=== PATIENT | male | born 1990 | race Caucasian/White ===

== ENCOUNTER 2016-06-02 11:42 | Emergency (ER) | payer OTHER ==
[~2016-06-02] VITALS: Ht 162.6 cm; Wt 78.0 kg
[~2016-06-02 11:42] MED LIST: CEPH250 PO; METHI10 PO; MULT-65 PO; PERC5TAB12 PO
[2016-06-02 11:51] VITALS: BP 131/88; PULSE 63; RESP 16; TEMP 97.6; O2SAT 100
[2016-06-02] MEDS ORDERED: THYROID MED (12:01)
[2016-06-02] MEDS ORDERED: BACT800T5 PO (12:09)
--- NOTE | 2016-06-02 12:14 | PD ---
HPI Chief Complaint: Skin Problem Time Seen by Provider: 12:09 Travel History International Travel<30 days: No Contact w/Intl Traveler<30days: No Traveled to known affect area: No History of Present Illness HPI Patient is a 25-year-old male presenting with skin lesion on the left lower extremity. Present for 2 days. Mother states it started off as a small blister and was pruritic. It is gotten larger over the last day. It is mildly painful. They've applied ice which has helped. No other attempts at palliation. No history of MRSA. No known trauma to the area however they recently unpacked boxes after moving [place] [facility] and he thinks he may have been an insect in the boxes and bit him. Last tetanus vaccine greater than 5 years. Denies fever, chills, nausea, vomiting or lymphadenopathy. He denies hives and difficulty breathing. 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) Implanted Vascular Access Dvce: No Kidney Stones: Yes (LITHOTRIPSY) Medical other: Yes (LOW MUSCLE TONE) Musculoskeletal: Yes (LOW MUSCLE TONE) Neurologic: No Psychiatric: No Reproductive: No Respiratory: No Immunizations Current: Yes Migraines: No Renal Failure: No Seizures: No Thyroid Disease: Yes (HYPER) Past Surgical History Abdominal Surgery: No Body Medical Devices: right kidney stent Cardiac Surgery: No Ear Surgery: No Endocrine Surgery: No Eye Surgery: No Genitourinary Surgery: Yes (URINARY STENTS/ESWL) Joint Replacement: No Neurologic Surgery: No Oral Surgery: No Pacemaker: No Thoracic Surgery: No Other Surgery: Yes Social History Alcohol Use: No Tobacco Use: No Substance Use: No Allergies-Medications (Allergen,Severity, Reaction): Coded Allergies: No Known Allergies (Unverified , 06/02/16) PARENT STATES HE HAD GI UPSET ONCE WITH IBUPROFEN--REMOVED ON 07/07/[address] PRECIADO Reported Meds & Prescriptions Reported Meds & Active Scripts Active Bactrim DS (Sulfamethoxazole-Trimethoprim) 800-160 Mg Tab 1 Tab PO BID Reported [Thyroid Med] Review of Systems Except as stated in HPI: all other systems reviewed are Neg Physical Exam Narrative GENERAL: Well-developed and well-nourished adult male in no acute distress. SKIN: 12 mm superficial blister with pustular and serous fluid on the mid lateral left calf. There is a zone of erythema approximately 1 cm circumferentially around the blister without induration or fluctuance. Minimally tender to palpation. Warm and dry. Good turgor without tenting. HEAD: Normocephalic and atraumatic. NECK: Supple, no midline tenderness, crepitus or step-offs. Trachea midline, no JVD. CARDIOVASCULAR: Regular rate and rhythm without murmurs, rubs, clicks or gallops. Dorsalis pedis and posterior tibial pulses 2+ bilaterally. No pedal edema. RESPIRATORY: Clear to auscultation bilaterally with symmetrical rise and fall, no distress or use of accessory muscles. LYMPH: Negative left popliteal and inguinal lymphadenopathy. Negative bilateral cervical and facial lymphadenopathy. MUSCULOSKELETAL: No gait disturbances. Patient freely moving all four extremities spontaneously. Extremities without clubbing, cyanosis, or edema. No obvious deformities. NEUROLOGIC: CN II-XII grossly intact. Awake and alert. Motor grossly within normal limits. Normal speech. PSYCHIATRIC: Appropriate mood and affect; insight and judgment normal. Data Data Last Documented VS Vital Signs Date Time Temp Pulse Resp B/P Pulse Ox O2 Delivery O2 Flow Rate FiO2 06/02/16 11:51 97.6 63 16 131/88 100 Orders Tetanus/Diphtheria Tox Adult (Tetanus/Di (06/02/16 12:15) Wound Culture And Gram Stain (06/02/16 12:07) MDM Medical Decision Making Medical Screen Exam Complete: Yes Emergency Medical Condition: Yes Differential Diagnosis Pustule versus cellulitis versus abscess versus folliculitis versus insect bite Narrative Course Patient's 25-year-old male with history and physical suggestive of an infected insect bite. Very superficial mixed serous and pustular blister that was incised and drained. This does not go below the dermis. There is minimal cellulitis without induration or fluctuance. He is afebrile and has no lymphadenopathy or systemic symptoms. Sent wound culture. Tetanus vaccine abated today. Given prescription for Bactrim and wound was dressed.See discharge paperwork for further instructions. The plan was discussed with the patient who acknowledged their understanding and agreement. Reinforced the follow-up with primary care is critically important. Patient instructed on emergent conditions that should prompt return to ED. Diagnosis Primary Impression: Infected blister Patient Instructions: Cellulitis (ED), General Instructions Additional Instructions: Keep area clean, dry, and covered with dressing/bandage Apply warm compresses daily to help with drainage Warm water Epsom salt soaks will help promote drainage Take Tylenol or ibuprofen for pain Take medications as directed Follow-up with PCP in 2 days, call laboratory for wound culture results Return to the ED for any acute worsening of symptoms including worsening swelling, spreading redness, fever, chills, nausea and vomiting Med/Other Pt SpecificInfo: Prescription(s) given Scripts Sulfamethoxazole-Trimethoprim (Bactrim DS)800-160 Mg Tab1 Tab PO BID #20 TAB Prov:LaKeira benoitchandler JAQUEZ 06/02/16 Disposition: 01 DISCHARGE HOME Condition: Stable Evans Trevino III Jun 02, 2016 12:14
[2016-06-02] MEDS ORDERED: TETANUS/DIPHTHERIA TOXOID ADULT 0.5 ML VIAL IM ONE (12:15)
[2016-07-01] MEDS ORDERED: PERC5TAB12 PO (09:08)
[2016-07-05] MEDS ORDERED: MULT1TAB84 PO (10:06)
[2016-07-05] MEDS ORDERED: METH5TAB4 PO (10:21)
[2016-07-05] MEDS ORDERED: CEPH-459 PO (14:54)
[2016-07-05] MEDS ORDERED: PERC5TAB12 PO (14:54)
[2016-07-08] MEDS ORDERED: ZOFR4TAB3 SL (09:21)
== END 2016-06-02 12:26 | disposition home or self-care (01) ==
LOC: PHEFT 11:42
DX: S80.822A Blister (nonthermal), left lower leg, initial encounter (principal); B95.62 Methicillin resistant Staphylococcus aureus infection as the cause of diseases classified elsewhere; R01.1 Cardiac murmur, unspecified; E07.9 Disorder of thyroid, unspecified; Z23 Encounter for immunization
CPT/HCPCS: 86403; 87070; 87186; 90471; 90714

== ENCOUNTER 2016-07-01 14:33 | Emergency (ER) | payer OTHER ==
[~2016-07-01] VITALS: Ht 167.6 cm; Wt 69.0 kg
[~2016-07-01 14:33] MED LIST changes: +BACT800T5 PO; -CEPH250 PO; -METHI10 PO; -MULT-65 PO; +THYROID MED
[2016-07-01 14:35] VITALS: BP 163/115; PULSE 92; RESP 18; TEMP 97.7; O2SAT 98
[2016-07-05] MEDS ORDERED: MULT1TAB84 PO (10:06)
[2016-07-05] MEDS ORDERED: METH5TAB4 PO (10:21)
[2016-07-05] MEDS ORDERED: PERC5TAB12 PO (14:54)
[2016-07-05] MEDS ORDERED: CEPH-459 PO (14:54)
[2016-07-08] MEDS ORDERED: ZOFR4TAB3 SL (09:21)
== END 2016-07-01 15:23 | disposition left against medical advice (07) ==
LOC: NED 14:33
DX: R68.89 Other general symptoms and signs (principal)
CPT/HCPCS: 99281

== ENCOUNTER → 2016-07-05 | Day surgery (SDC) | payer OTHER ==
[~2016-07-05] VITALS: Ht 165.1 cm; Wt 79.7 kg
[~2016-07-05] MED LIST changes: +*ONDANSETRON 4 MG VIAL PERIprocedural Use ONLY ONE; +*RESP: ALBUTEROL 2.5 MG/3 ML NEB (PRN) PERIprocedural Use ONLY NEB ONE; +*morphine SULFATE 8 MG/ML PERIprocedure ONLY ONE; +CEPH-459 PO; +DO NOT ADM ANY ANTICOAGULANT DRUGS XX PRN; +FAMOTIDINE 20 MG/2 ML VIAL ONE; +HYDROmorphone HCL PF 1 MG/ML VIAL IV PUSH PRN; +INSULIN HUMAN REGULAR 1,000 UNITS/10 ML VIAL SQ PRN; +IOHEXOL 350 MG/ML 50 ML BTL (for RAD DIAG) OTHER ONE; +LACTATED RINGER'S 1000 ML INJ 2,000 ML IV ONE; +LACTATED RINGER'S 1000 ML IV SCH; +METH5TAB4 PO; +METOPROLOL TARTRATE 25 MG TAB PO PRN; +MIDAZOLAM HCL 2 MG/2 ML VIAL ONE; +MULT1TAB84 PO; +ONDANSETRON HCL 4 MG/2 ML VIAL IV PUSH ONE; +ONDANSETRON HCL 4 MG/2 ML VIAL IV PUSH PRN; +PROMETHAZINE HCL 25 MG SUPP ONE; +PROMETHAZINE HCL 25 MG SUPP RECTAL ONE; +PROPOFOL 200 MG/20 ML AMP IV ONE; +SODIUM CHLORID 0.9% 500 ML IV SCH; +SUGAMMADEX SODIUM 200 MG/2 ML VIAL IV PUSH ONE; +ZOFR4TAB3 SL; +ceFAZolin 1,000 MG/NS 100 ML IV SCH; +ePHEDrine/NS 25 MG/5 ML SYR IV ONE; +fentaNYL CITRATE 250 MCG/5 ML AMP ONE; +oxyCODONE/ACETAMINOPHEN 5 MG/325 MG TAB PO PRN
[2016-07-05 10:06] VITALS: BP 121/88; PULSE 73; RESP 18; TEMP 97; O2SAT 97
[2016-07-05 10:30] LABS: AUTOMATED NEUTROPHIL # 3.7 TH/MM3 (1.8-7.7); BASOPHIL % 0.7 % (0.0-2.0); EOSINOPHIL # 0.2 TH/MM3 (0-0.4); EOSINOPHIL % 4.3 % (0.0-4.0); HEMATOCRIT 38.7 % (39.0-51.0); HEMO FLAGS DIFF FINAL; LYMPH % 20.8 % (9.0-44.0); LYMPHOCYTE # 1.2 TH/MM3 (1.0-4.8); MEAN CELL VOLUME 83.3 FL (80.0-100.0); MEAN CORPUSCULAR HEMOGLOBIN 28.6 PG (27.0-34.0); MEAN CORPUSCULAR HGB CONC 34.3 % (32.0-36.0); MONO % 9.7 % (0.0-8.0); NEUT % 64.5 % (16.0-70.0); PLATELET COUNT 246 TH/MM3 (150-450); RED BLOOD COUNT 4.65 MIL/MM3 (4.50-5.90); RED CELL DISTRIBUTION WIDTH 13.1 % (11.6-17.2); WHITE BLOOD COUNT 5.7 TH/MM3 (4.0-11.0)
--- NOTE | 2016-07-05 14:53 | PD.OP ---
Operative Report Date of Surgery: Jul 05, 2016 Preoperative Diagnosis: (1) Bilateral ureteral calculi Postoperative Diagnosis: (1) Bilateral ureteral calculi Procedure: Cystoscopy, bilateral retrograde pyelograms, bilateral ureteroscopy with laser lithotripsy, left ureteral catheter placement and right ureteral stent placement Anesthesia: General Surgeon: Chad Ovalle [employer] Scientist(s): None Operation and Findings: Indication for procedure: 25-year-old male with bilateral obstructing distal ureteral calculi who presents now for ureteroscopy with laser lithotripsy. Operative procedure in detail: Patient was brought to the operative room suite and placed supine on the cystoscopy table. He was then placed in the general anesthesia. He was then repositioned in the dorsal lithotomy position and prepped and draped in normal sterile fashion. After an appropriate timeout was undertaken I proceeded with cystoscopic evaluation utilizing the rigid cystoscope with the 20 [place] sheath and 30 lens. The urethra was patent without stricture formation prosthetic urethra was nonobstructing further passes of cystoscope within the urinary bladder demonstrated sluggish reflux from the left orifice and no reflux on the right side. I then proceeded with performing a left retrograde pyelogram study and the patient was noted to have a partially obstructing stone involving the distal left ureter measuring approximate 5 mm in size. A sensor 0.035 wire was advanced up the left ureter and the cystoscope was subsequently withdrawn. The wire was secured to sterile drape with hemostat. I next used a self dilating ureteroscope and advanced up the left ureter up to the point of the stone which was subsequently broken up into small pieces utilizing the 200 holmium laser fiber. Once the stone was broken up several of the pieces were extracted with a 2.4 [place] basket and sent off for chemical analysis. The guidewire was left up the left ureter for the time being. The focus of attention was towards addressing the right side and similar fashion the right retrograde study was performed which demonstrated a markedly obstructing stone involving the distal ureter approximate 5 cm from the right ureteral orifice. I next passed a 0.035 sensor wire up the right ureter however I was unable to advance this wire beyond the obstructing stone. The cystoscope was withdrawn and the self dilating ureteroscope was once again utilized and this time was advanced over the partially advanced wire. Was easily able to advance the scope up to the obstructing stone and under direct vision was able to finasteride wire around the stone and further advance the wire up into the right renal pelvis. With the wire in place the ureteroscope was withdrawn and reintroduced alongside the wire up to the point of the obstructing stone. The 200 holmium laser fiber was again utilized and the stone broken down into small fragments. A portion of the stone could be seen protruding through the ureteral wall. The rigid ureteroscope was withdrawn and the flexible ureteroscope was utilized and further laser lithotripsy of the stone was accomplished. A 2.4 [place] basket was utilized and several of the larger fragments were sent off for chemical composition analysis as well. The flexible ureteroscope was withdrawn and the cystoscope was reintroduced and the guidewire backloaded through the cystoscope. A 6 [place] 24 cm group home double J stent was next advanced over the wire under both cystoscopic and fluoroscopic guidance. Once the stent was in proper position the trailing string was removed. I then backloaded the wire that was earlier placed protruding from the patient's left ureter over the cystoscope and a 6 [place] open-ended ureteral catheter was easily advanced up the patient's left ureter. The cystoscope was withdrawn and a 16 [place] 10 cc Mclaughlin catheter was placed and connected to gravity drainage. The patient tolerated the procedures without, patient was transferred to the PACU in satisfactory condition. Chad Ovalle MD Jul 05, 2016 14:53
--- NOTE | 2016-07-05 15:30 | RADRPT ---
EXAM DATE/TIME: 07/05/2016 15:03 [facility] COMPARISON: No previous studies available for comparison. INDICATIONS : Possible aspiration. MEDICAL HISTORY : Renal calculi. Congenital heart defect. Immune thrombocytopenic purpura. SURGICAL HISTORY : Lithotripsy. Urinary stents. ENCOUNTER: Initial ACUITY: 1 day PAIN SCORE: 0/10 LOCATION: chest FINDINGS: A single portable frontal view of the chest is blurred by motion artifact. Bilateral perihilar infilt rates are appreciated. These are mixed interstitial and intra-alveolar. No effusions. Heart is normal in size lung volumes are low. CONCLUSION: Bilateral perihilar infiltrates. Jefe Han Jr., MD on July 05, 2016 at 15:28 Board Certified Radiologist. This report was verified electronically.
[2016-07-05 17:03] VITALS: BP 145/97; PULSE 117; RESP 16; TEMP 97.8; O2SAT 98
== END | disposition home or self-care (01) ==
LOC: HSDC 09:20
PROVIDERS: ATTEND Urology
DX: N20.1 Calculus of ureter (principal); D69.3 Immune thrombocytopenic purpura; R91.8 Other nonspecific abnormal finding of lung field
CPT/HCPCS: 00918; 52356; 71010; 74420; 82370; 85025; 88300; C1769; J0690; J2250; J2270; J2405; J3010; J7120; J7613; Q9967

== ENCOUNTER 2017-03-07 16:24 | Emergency (ER) | payer OTHER ==
[~2017-03-07] VITALS: Ht 167.6 cm; Wt 80.6 kg
[~2017-03-07 16:24] MED LIST changes: -*ONDANSETRON 4 MG VIAL PERIprocedural Use ONLY ONE; -*RESP: ALBUTEROL 2.5 MG/3 ML NEB (PRN) PERIprocedural Use ONLY NEB ONE; -*morphine SULFATE 8 MG/ML PERIprocedure ONLY ONE; -BACT800T5 PO; -CEPH-459 PO; -DO NOT ADM ANY ANTICOAGULANT DRUGS XX PRN; -FAMOTIDINE 20 MG/2 ML VIAL ONE; -HYDROmorphone HCL PF 1 MG/ML VIAL IV PUSH PRN; -INSULIN HUMAN REGULAR 1,000 UNITS/10 ML VIAL SQ PRN; -IOHEXOL 350 MG/ML 50 ML BTL (for RAD DIAG) OTHER ONE; -LACTATED RINGER'S 1000 ML INJ 2,000 ML IV ONE; -LACTATED RINGER'S 1000 ML IV SCH; -METOPROLOL TARTRATE 25 MG TAB PO PRN; -MIDAZOLAM HCL 2 MG/2 ML VIAL ONE; -ONDANSETRON HCL 4 MG/2 ML VIAL IV PUSH ONE; -ONDANSETRON HCL 4 MG/2 ML VIAL IV PUSH PRN; +PERC10TA27 PO; -PROMETHAZINE HCL 25 MG SUPP ONE; -PROMETHAZINE HCL 25 MG SUPP RECTAL ONE; -PROPOFOL 200 MG/20 ML AMP IV ONE; -SODIUM CHLORID 0.9% 500 ML IV SCH; -SUGAMMADEX SODIUM 200 MG/2 ML VIAL IV PUSH ONE; -THYROID MED; -ceFAZolin 1,000 MG/NS 100 ML IV SCH; -ePHEDrine/NS 25 MG/5 ML SYR IV ONE; -fentaNYL CITRATE 250 MCG/5 ML AMP ONE; -oxyCODONE/ACETAMINOPHEN 5 MG/325 MG TAB PO PRN
[2017-03-07 16:32] VITALS: BP 121/79; PULSE 67; RESP 16; TEMP 97.6; O2SAT 99
[2017-03-07] MEDS ORDERED: oxyCODONE/ACETAMINOPHEN 5 MG/325 MG TAB PO ONE (16:45)
[2017-03-07] MEDS ORDERED: NO ITAB (16:56)
--- NOTE | 2017-03-07 17:00 | PD ---
HPI Chief Complaint: Flank/Kidney Pain Time Seen by Provider: 16:39 Travel History International Travel<30 days: No Contact w/Intl Traveler<30days: No Traveled to known affect area: No History of Present Illness HPI This patient is brought in by his father. 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 He has history of multiple kidney stones. Today's complaining of right flank pain and father is thinking is a kidney stone. He requests CT scan be done. He does have a urologist and has had multiple episodes of lithotripsy. No fever or injury or hematuria. Symptoms severity is moderate. No alleviating factors. Duration one day. No exacerbating factors. 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) Implanted Vascular Access Dvce: No Kidney Stones: Yes (LITHOTRIPSY) Medical other: Yes (LOW MUSCLE TONE) Musculoskeletal: Yes (LOW MUSCLE TONE) Neurologic: No Psychiatric: No Reproductive: No Respiratory: No Immunizations Current: Yes Migraines: No Renal Failure: No Seizures: No Thyroid Disease: Yes (HYPER) ?: Not Past Surgical History Abdominal Surgery: No Body Medical Devices: right kidney stent Cardiac Surgery: No Ear Surgery: No Endocrine Surgery: No Eye Surgery: No Genitourinary Surgery: Yes (URINARY STENTS/ESWL) Joint Replacement: No Neurologic Surgery: No Oral Surgery: No Pacemaker: No Thoracic Surgery: No Other Surgery: Yes Social History Alcohol Use: No Tobacco Use: No Substance Use: No Allergies-Medications (Allergen,Severity, Reaction): Coded Allergies: *MDRO Multi-Drug Resistant Organism (Verified Adverse Reaction, Unknown, ) MRSA (leg)-06/02/16 Reported Meds & Prescriptions Reported Meds & Active Scripts Active Percocet (Oxycodone-Acetaminophen) 5-325 mg Tab 1 Tab PO Q6H PRN Reported Multiple Vitamin (Multivitamin with Minerals) 1 Each Tablet Methimazole 5 Mg Tab 5 Mg PO DIRECTED Review of Systems General / Constitutional: No: Fever Eyes: No: Visual changes HENT: No: Headaches Cardiovascular: No: Chest Pain or Discomfort Respiratory: No: Shortness of Breath Gastrointestinal: No: Abdominal Pain Genitourinary: Positive: Flank Pain, No: Dysuria Musculoskeletal: No: Pain Skin: No Rash Neurologic: No: Weakness Psychiatric: No: Depression Endocrine: No: Polydipsia Hematologic/Lymphatic: No: Easy Bruising Physical Exam Narrative GENERAL: Well-nourished, well-developed patient in no apparent distress. SKIN: Focused skin assessment reveals no rash and nodules. Skin is Warm and dry. HEAD: Atraumatic. Normocephalic. EYES: Pupils equal and round. No scleral icterus. No injection or drainage. ENT: No nasal bleeding or discharge. Mucous membranes pink and moist. NECK: Trachea midline. No JVD. CARDIOVASCULAR: Regular rate and rhythm. No murmur appreciated. RESPIRATORY: No accessory muscle use. Clear to auscultation. Breath sounds equal bilaterally. GASTROINTESTINAL: Abdomen soft, non-tender, nondistended. Hepatic and splenic margins not palpable. MUSCULOSKELETAL: No obvious deformities. No clubbing. No cyanosis. No edema. NEUROLOGICAL: Awake and alert. No obvious cranial nerve deficits. Motor grossly within normal limits. Normal speech. PSYCHIATRIC: Appropriate mood and affect; insight and judgment normal. Data Data Last Documented VS Vital Signs Date Time Temp Pulse Resp B/P (MAP) Pulse Ox O2 Delivery O2 Flow Rate FiO2 03/07/17 16:32 97.6 67 16 121/79 (93) 99 Room Air Orders Orders Urinalysis - C+S If Indicated (03/07/17 16:43) Ct Abd/Pel W/O Iv Contrast (03/07/17 ) Oxycodone-Acetamin 5-325 Mg (Percocet (03/07/17 16:45) Labs Laboratory Tests Test 03/07/17 16:55 Urine Collection Type CLEAN CATCH Urine Color YELLOW Urine Turbidity CLEAR Urine pH 6.5 Urine Specific [place] 1.035 Urine Protein TRACE mg/dL Urine Glucose (UA) NEG mg/dL Urine Ketones TRACE mg/dL Urine Occult Blood LARGE Urine Nitrite NEG Urine Bilirubin NEG Urine Leukocyte Esterase NEG Urine RBC 50-99 /hpf Urine WBC 0-2 /hpf Urine Squamous Epithelial Cells 0-5 /hpf Microscopic Urinalysis Comment CULT NOT INDICATED Urine Collection Time 16:55 [facility] Medical Decision Making Medical Screen Exam Complete: Yes Emergency Medical Condition: Yes Medical Record Reviewed: Yes Differential Diagnosis Kidney stone, sciatica, lumbar strain Narrative Course I have reviewed the patient's electronic medical record. Patient's been seen multiple time for stone problems and has had lithotripsy and cystoscopy Urinalysis shows hematuria without infection CT of abdomen and pelvis is noted and discussed with father. Four stones are seen and the largest is 6 mm in the right low pelvis I gave him a pain pill He will call the urologist Friday morning for follow-up Pain medicine written Diagnosis Primary Impression: Kidney stone Additional Instructions: The patient was advised to follow up with their urologist and return if they worsen. The patient was warned about potential sedation for the medications they will receive on prescription. Med/Other Pt SpecificInfo: Prescription(s) given Scripts Oxycodone-Acetaminophen (Percocet) 5-325 mg Tab 1 TAB PO Q6H Y for PAIN, #20 TAB 0 Refills Prov: Swapnil Hodges MD 03/07/17 Disposition: 01 DISCHARGE HOME Condition: Stable Swapnil Hodges MD Mar 07, 2017 17:00
[2017-03-07 17:01] LABS: BLOOD, URINE LARGE (NEG); GLUCOSE,URINE NEG (NEG); KETONE, URINE TRACE mg/dL (NEG); NITRITE,URINE NEG (NEG); PH, URINE 6.5 (5.0-8.5)
[2017-03-07 17:04] LABS: METHOD OF COLLECTION CLEAN CATCH; URINE COLOR YELLOW (YELLW/STRAW)
[2017-03-07 17:05] LABS: COMMENT (UR) CULT NOT INDICATED; CULTURE IF INDICATED CULT NOT INDICATED; SQUAMOUS EPITHELIAL CELL URINE 0-5 /hpf (0-5); WBC, URINE 0-2 /hpf (0-5)
--- NOTE | 2017-03-07 17:52 | RADRPT ---
EXAM DATE/TIME: 03/07/2017 17:22 [facility] COMPARISON: CT ABDOMEN & PELVIS W/O CONTRAST, June 02, 2015, 22:59. INDICATIONS : Right flank pain. ORAL CONTRAST: No oral contrast ingested. RADIATION DOSE: 23.51 CTDIvol (mGy) MEDICAL HISTORY : Renal calculi. SURGICAL HISTORY : Lithotripsy. ENCOUNTER: Initial ACUITY: 1 day PAIN SCALE: 8/10 LOCATION: Right flank TECHNIQUE: Volumetric scanning of the abdomen and pelvis was performed. Using automated exposure control and ad justment of the mA and/or kV according to patient size, radiation dose was kept as low as reasonably achievable to obtain optimal diagnostic quality images. DICOM format image data is available electro nically for review and comparison. FINDINGS: The limited portion of the lung base visualized is clear. Right kidney/ureter: There are moderate hydronephrotic changes. There are scattered stones evident within the collecting s ystem. There are least 4 stones present. The largest is in the dependent portion of the lower pole. T here is a cluster of 2 stones in this area both of which measure approximately 6 mm. The right ureter is dilated throughout most of its course. It can be followed down to a point at the level of the mid pelvis. There is a 6 mm stone in the distal aspect of the right ureter. Left kidney/ureter: The left kidney is normal in size. There is no hydronephrosis. There are 2 nonobstructing stones with in the left kidney. The largest measures 6 mm. The left ureter is followed throughout its course and is unremarkable appearance. Bladder: No stones are identified within the bladder. CT source data: The visualized portion of liver, spleen, pancreas and the adrenal glands are normal in appearance. Th ere is no retroperitoneal adenopathy. No free air free fluid is seen. The examination does demonstrat e a 1.8 cm node in the high right inguinal region. This is similar in size to the prior dated 06/02/15 . Note is made of an advanced rotatory scoliosis of the lumbar spine. CONCLUSION: 1. There are multiple stones seen within the collecting system of the right kidney. There are moderat e hydronephrotic changes. The right ureter can be followed down to a point within the pelvis where it is in a there is a 6 mm stone within the right ureter. 2. There are 2 stones seen within the collecting system of the left kidney. The largest measures 6 mm . Eugene Ngo MD on March 07, 2017 at 17:44 Board Certified Radiologist. This report was verified electronically.
[2017-03-07] MEDS ORDERED: PERC5TAB12 PO (18:02)
== END 2017-03-07 18:08 | disposition home or self-care (01) ==
LOC: PHED 16:24
DX: N20.0 Calculus of kidney (principal)
CPT/HCPCS: 74176; 81001; 99285

== ENCOUNTER → 2017-03-21 | Day surgery (SDC) | payer OTHER ==
[~2017-03-21] MED LIST changes: +CHLORHEXIDINE GLUCONATE 2 % 1 PACK (2 CLOTHS) TOPICAL PRN; +INSULIN HUMAN REGULAR 1,000 UNITS/10 ML VIAL SQ PRN; +LACTATED RINGER'S 1000 ML IV PRN; +METOPROLOL TARTRATE 25 MG TAB PO PRN; -MULT1TAB84 PO; +NO ITAB PO; -PERC10TA27 PO; +POVIDONE IODINE 5% (ANTISEPSIS KIT) 4 APPLICATIONS EACH NARE PRN; +SODIUM CHLORID 0.9% 500 ML IV PRN; -ZOFR4TAB3 SL; +ceFAZolin 1,000 MG/NS 100 ML IV SCH
--- NOTE | 2017-03-21 13:23 | RADRPT ---
EXAM DATE/TIME: 03/21/2017 12:26 [facility] COMPARISON: ABDOMEN KUB ONLY, December 06, 2015, 8:29. INDICATIONS : Pre-op right renal calculi MEDICAL HISTORY : Renal calculi. SURGICAL HISTORY : Lithotripsy ENCOUNTER: Initial ACUITY: 1 day PAIN SCORE: 0/10 LOCATION: Right Abdomen FINDINGS: 2 supine frontal views of the abdomen show gas and stool obscuring the renal contours bilaterally. Th ere is a faint 7 mm density projecting over the right renal contour but also the ascending colon. Thi s could relate to a stone or ingested material. 3 calcifications project over the left kidney measuri ng 6 mm, 3 mm, and 2 mm.. Gas-filled loops of nondilated small bowel throughout the abdomen but most pronounced within the left upper quadrant. Gas throughout normal caliber colon to the level of the si gmoid. A scoliotic curvature to the spine. CONCLUSION: 7 mm density projects over the right kidney as well as the ascending colon. This could either relate to a stone or ingested material. 3 suspected small left renal stones. Jefe Han Jr., MD on March 21, 2017 at 13:12 Board Certified Radiologist. This report was verified electronically.
== END | disposition home or self-care (01) ==
LOC: HSDC 11:34
PROVIDERS: ATTEND Urology
DX: N20.0 Calculus of kidney (principal); Z53.9 Procedure and treatment not carried out, unspecified reason
CPT/HCPCS: 74000; 99211; G0463